=== PATIENT | female | born 1955 | race Caucasian/White ===

== ENCOUNTER 2018-06-06 10:51 | Day surgery (SDC) | payer MEDICARE, OTHER ==
[~2018-06-06] VITALS: Ht 154.9 cm; Wt 94.1 kg
[~2018-06-06 10:51] MED LIST: PROPOFOL 200 MG INJ ONE
[2018-06-06 11:27] VITALS: Ht 154.9 cm; Wt 94.1 kg
--- NOTE | 2018-06-06 11:46 | PREAC ---
Date/Time of Note Date/Time of Note DATE: 06/06/18 TIME: 11:44 Anesthesia Eval and Record Evaluation Time Pre-Procedure Interview DATE: 06/06/18 TIME: 11:44 Age 62 Sex female NPO: 8 hrs Preoperative diagnosis ANEMIA Planned procedure COLONOSCOPY Past Medical History Past Medical History: Includes Cardio: HTN, Dyslipidemia Endo: Diabetes, Hypothyroid Musculoskeletal: Osteoarthritis GI: Obesity Heme: Anemia Surgery & Anesthesia Issues No known issue Meds Anticoagulation: No Beta Kandace within 24 hr: Yes Meds reviewed: Yes Allergies Coded Allergies: No Known Allergy (Unverified , 04/17/13) Allergies Reviewed: Yes Labs/Studies Labs Reviewed: Reviewed by anesthesiologist test: N/A Pre-procedure Exam Airway: Adequate mouth opening, Adequate thyromental dist Mallampati: Mallampati II Teeth: Normal Lung: Normal Heart: Normal ASA Physical Status ASA physical status: 3 Emergency: None Planned Anesthetic General/MAC: MAC Planned Pain Management Parenteral pain med Pre-operative Attestations Prior to commencing anesthesia and surgery, the patient was re-evaluated, there was verification of: *The patient's identity *The results of appropriate recent lab work and preoperative vital signs *The above evaluation not changing prior to induction *Anesthetic plan, risk benefits, alternative and complications discussed with patient/family; questions answered; patient/family understands, accepts and wishes to proceed. TUCKER ADAM Jun 06, 2018 11:46
[2018-06-06] MEDS ORDERED: FUROSEMIDE (11:57)
[2018-06-06] MEDS ORDERED: GABAPENTIN (11:57)
[2018-06-06] MEDS ORDERED: METOPROLOL (11:57)
[2018-06-06] MEDS ORDERED: ASPIRIN (11:57)
[2018-06-06] MEDS ORDERED: LEVOTHYROXINE (11:57)
[2018-06-06] MEDS ORDERED: METFORMIN (11:57)
[2018-06-06] MEDS ORDERED: LABETALOL HCL 20MG INJ IV PRN (12:00)
[2018-06-06] MEDS ORDERED: FENTAnyl 50 MCG/ML VIAL IV PRN (12:00)
[2018-06-06] MEDS ORDERED: hydrALAzine 20 MG INJ IV PRN (12:00)
[2018-06-06] MEDS ORDERED: DIPHENHYDRAMINE 50 MG INJ IV PRN (12:00)
[2018-06-06] MEDS ORDERED: EPHEDrine SULFATE 50 MG/5 ML SYG IV PRN (12:00)
[2018-06-06] MEDS ORDERED: ALBUTEROL 0.083% (NEB) 2.5 MG/3 ML AMP HHN PRN (12:00)
[2018-06-06] MEDS ORDERED: ONDANSETRON 4 MG INJ IV PRN (12:00)
[2018-06-06 12:04] VITALS: BP 162/71; PULSE 83; RESP 20
[2018-06-06] MEDS ORDERED: LIDOCAINE 2% (SDV) 5 ML INJ ONE (12:08)
[2018-06-06] MEDS ORDERED: PROPOFOL 60 ML ONE (12:08)
[2018-06-06 12:39] VITALS: BP 121/76; PULSE 83
[2018-06-06 12:44] VITALS: BP 120/65; PULSE 70
[2018-06-06 12:49] VITALS: BP 121/78; PULSE 54; RESP 20
--- NOTE | 2018-06-06 13:23 | PAC ---
Date/Time of Note Date/Time of Note DATE: 06/06/18 TIME: 13:23 Post-Anesthesia Notes Post-Anesthesia Note Last documented vital signs Vital Signs Date Temp Pulse Resp B/P (MAP) Pulse Ox O2 O2 Flow FiO2 Time Delivery Rate 06/06/18 98.0 54 20 121/78 95 12:49 (92) 06/06/18 98.0 Room Air 12:04 Activity: WNL Respiratory function: WNL Cardiovascular function: WNL Mental status: Baseline Pain reasonably controlled: Yes Hydration appropriate: Yes Nausea/Vomiting absent: Yes TUCKER ADAM Jun 06, 2018 13:23
--- NOTE | 2018-06-06 16:59 | CONS ---
DATE OF ADMISSION: 06/06/2018 DATE OF CONSULTATION: PATIENT NAME: VAN GONZALEZ TYPE OF CONSULTATION: Preoperative gastroenterology Dear Dr. Yoder: I thank you very much for this kind referral. HISTORY OF PRESENT ILLNESS: Ms. Van Gonzalez is a 62-year-old female patient who has been referred to me for further evaluation of iron deficiency anemia. The patient had abdominal CT scan done and t his is suspicious for mass in the cecum. No past history of colon neoplasm. The patient never had s creening colonoscopy. Appetite is good, no weight loss. No upper abdominal pain. The patient is on baby aspirin a day. No history of gallstones or liver disease. She is hypertensive. She has diabe cesar. No heart disease, lung problem or kidney disease. She has hyperlipidemia and hypothyroidism. SOCIAL HISTORY: Nonsmoker. No alcohol abuse. FAMILY HISTORY: No family history of gastrointestinal tract neoplasm. ALLERGIES: NO ALLERGY TO MEDICATIONS. MEDICATIONS: She is on medications for high blood pressure, diabetes, cholesterol and hypothyroidism . She also takes medicine for degenerative joint disease of the back. She does not remember the nam es. PHYSICAL EXAMINATION: VITAL SIGNS: She is 5 feet 1 inch tall and weighs 210 pounds. BMI 40. Blood pressure 138/92. CARDIAC: Normal heart sounds. LUNGS: Clear. ABDOMEN: Soft, no masses. Normal bowel sounds. NEUROLOGIC: Normal neurological exam. IMPRESSION: 1. Iron deficiency anemia. 2. The patient had abdominal CT scan and it is suspicious for a cecal mass. 3. The patient never had screening colonoscopy. 4. Hypertension. 5. Diabetes mellitus. 6. Hyperlipidemia. 7. Hypothyroidism. 8. Degenerative joint disease of the back. 9. The patient is on baby aspirin a day. 10. Obesity. PLAN: 1. The patient was strongly advised to lose weight. 2. Dietary consultation was recommended. 3. Follow up with the primary MD for the management of obesity and hypertension. 4. Colonoscopy for further evaluation. The procedure and possible complications are well explained to the patient. She understands and cons ents to the procedure. I thank you once again. With warmest personal regards, Dictated By: DOE BARTLETT/DEMETRIO Conf#: [id number] DID#: [id number]
== END 2018-06-06 15:02 | disposition home or self-care (01) ==
LOC: GIL 10:51
PROVIDERS: ATTEND Internal Medicine Gastroenterology
DX: K64.8 Other hemorrhoids (principal); E11.9 Type 2 diabetes mellitus without complications; I10 Essential (primary) hypertension; E03.9 Hypothyroidism, unspecified
CPT/HCPCS: 82962